=== PATIENT | female | born 1990 | race Caucasian/White ===

== ENCOUNTER 2017-02-10 11:25 | Emergency (ER) | payer BC, OTHER ==
[~2017-02-10] VITALS: Ht 162.6 cm; Wt 81.1 kg
[~2017-02-10 11:25] MED LIST: MEDR150D3
[2017-02-10] MEDS ORDERED: SODIUM CHLORIDE 0.9% 500 ML IV SCH (12:30)
[2017-02-10 12:42] LABS: HEMATOCRIT 43.6 % (34.6-47.8); HEMOGLOBIN 14.7 g/dL (11.7-16.4); WHITE BLOOD COUNT 5.9 x10^3/uL (3.4-10)
[2017-02-10 12:52] LABS: BLOOD UREA NITROGEN 14 mg/dL (7-18)
[2017-02-10 12:58] LABS: ASPARTATE AMINO TRANSFERASE 20 U/L (15-37)
[2017-02-10 13:55] VITALS: BP 108/54
== END 2017-02-10 13:57 | disposition home or self-care (01) ==
LOC: ED 12:19
DX: K52.9 Noninfective gastroenteritis and colitis, unspecified (principal)
CPT/HCPCS: 36415; 76700; 80053; 84703; 85025; 96360; 99285; J7040

== ENCOUNTER → 2017-05-31 | Outpatient (CLI) | payer BC ==
[~2017-05-31] MED LIST changes: +OMNIPAQUE 350 MG/ML, 100ML BOTTLE ONE
== END | disposition home or self-care (01) ==
LOC: CFH 12:14
PROVIDERS: ATTEND Nurse Practitioner Family
DX: N94.89 Other specified conditions associated with female genital organs and menstrual cycle (principal); R10.30 Lower abdominal pain, unspecified
CPT/HCPCS: 74177; Q9967